=== PATIENT | female | born 1990 | race Caucasian/White ===

== ENCOUNTER 2018-02-22 09:53 | Emergency (ER) | payer OTHER ==
[2018-02-22] MEDS: IBUPROFEN 600 MG TAB PO (10:16)
== END 2018-02-22 10:39 | disposition home or self-care (01) ==
LOC: FTE 09:53
DX: S93.401A Sprain of unspecified ligament of right ankle, initial encounter (principal); R40.2412 Glasgow coma scale score 13-15, at arrival to emergency department; X58.XXXA Exposure to other specified factors, initial encounter; Y92.9 Unspecified place or not applicable
CPT/HCPCS: 99282; Z7610